=== PATIENT | male | born 1965 | race Two or more races ===

== ENCOUNTER 2021-11-23 16:22 | Emergency (ER) | payer OTHER ==
[~2021-11-23] VITALS: Ht 167.6 cm; Wt 90.7 kg
[2021-11-23] MEDS ORDERED: LIPITOR40 M1 PO (16:41)
[2021-11-23] MEDS ORDERED: HYDROCHLOROTHIA25 MG PO (16:42)
[2021-11-23] MEDS ORDERED: GEMFIBROZIL600 MG PO (16:42)
[2021-11-23] MEDS ORDERED: METFORMIN HCL1000 M2 PO (16:42)
[2021-11-23] MEDS ORDERED: LEVO-T75 MCG PO (16:42)
== END 2021-11-23 18:15 | disposition home or self-care (01) ==
LOC: ER 16:22
DX: R73.9 Hyperglycemia, unspecified (principal)

== ENCOUNTER 2022-09-27 05:47 | Emergency (ER) | payer OTHER ==
[~2022-09-27] VITALS: Ht 167.6 cm; Wt 90.7 kg
[~2022-09-27 05:47] MED LIST: GEMFIBROZIL600 MG PO; HYDROCHLOROTHIA25 MG PO; LEVO-T75 MCG PO; LIPITOR40 M1 PO; METFORMIN HCL1000 M2 PO
[2022-09-27] MEDS ORDERED: GLIMEPIRIDE2 M1 PO (05:55)
[2022-09-27] MEDS ORDERED: ZESTRIL40 M1 PO (05:56)
[2022-09-27] MEDS ORDERED: TRAMADOL HCL50 MG PO (21:55)
== END 2022-09-27 06:59 | disposition home or self-care (01) ==
LOC: ER 05:47
DX: M62.830 Muscle spasm of back (principal)

== ENCOUNTER 2022-09-27 16:45 | Emergency (ER) | payer OTHER ==
[~2022-09-27] VITALS: Ht 167.6 cm; Wt 111.1 kg
[~2022-09-27 16:45] MED LIST changes: +GLIMEPIRIDE2 M1 PO; +ZESTRIL40 M1 PO
[2022-09-27] MEDS ORDERED: TRAMADOL HCL50 MG PO (21:55)
== END 2022-09-27 22:28 | disposition home or self-care (01) ==
LOC: ER 16:45
DX: R07.81 Pleurodynia (principal); E11.9 Type 2 diabetes mellitus without complications; Z79.84 Long term (current) use of oral hypoglycemic drugs; I10 Essential (primary) hypertension; E03.9 Hypothyroidism, unspecified